=== PATIENT | female | born 1970 | race Two or more races ===

== ENCOUNTER 2017-04-06 05:32 | Emergency (ER) | payer SELFPAY ==
[~2017-04-06] VITALS: Ht 172.7 cm; Wt 88.0 kg
[2017-04-06 05:47] VITALS: BP 176/114
== END 2017-04-06 08:40 | disposition left against medical advice (07) ==
LOC: ER 07:26
DX: J02.9 Acute pharyngitis, unspecified (principal); M54.9 Dorsalgia, unspecified; Z53.21 Procedure and treatment not carried out due to patient leaving prior to being seen by health care provider